=== PATIENT | female | born 1945 | race Native Hawaiian/Other Pacific Islander ===

== ENCOUNTER 2016-09-06 09:41 | Inpatient (IN) | payer OTHER | END 2016-10-07 08:00 | disposition still patient (30) | LOC: PAVB 09:41 | PROVIDERS: ADMIT Internal Medicine | DX: Z51.89 Encounter for other specified aftercare (principal) ==

== ENCOUNTER 2016-10-07 09:00 | Inpatient (IN) | payer OTHER | END 2016-11-07 10:19 | disposition still patient (30) | LOC: PAVB 09:00 | PROVIDERS: ADMIT Internal Medicine | DX: Z51.89 Encounter for other specified aftercare (principal) ==

== ENCOUNTER 2016-10-08 07:47 | Outpatient (CLI) | payer OTHER ==
[2016-10-08 08:26] LABS: PLATELET COUNT 158 K/uL (152-353)
[2016-10-08 08:45] LABS: SODIUM 134 mmol/L (136-145)
== END 2016-10-08 19:20 | disposition home or self-care (01) ==
LOC: LAB 07:47
PROVIDERS: Internal Medicine
DX: E11.9 Type 2 diabetes mellitus without complications (principal); I10 Essential (primary) hypertension
CPT/HCPCS: 36415; 80053; 83036; 85027

== ENCOUNTER 2016-11-07 10:51 | Inpatient (IN) | payer OTHER | END 2016-12-05 09:48 | disposition still patient (30) | LOC: PAVB 10:51 | PROVIDERS: ADMIT Internal Medicine | DX: Z51.89 Encounter for other specified aftercare (principal) ==

== ENCOUNTER 2016-11-19 18:34 | Outpatient (CLI) | payer OTHER | END 2016-11-19 23:07 | disposition home or self-care (01) | LOC: LAB 18:34 | DX: N39.0 Urinary tract infection, site not specified (principal) | CPT/HCPCS: 81000; 87077; 87086; 87088; 87186 ==

== ENCOUNTER 2016-12-05 11:04 | Inpatient (IN) | payer OTHER | END 2017-01-05 08:05 | disposition still patient (30) | LOC: PAVB 11:04 | PROVIDERS: ADMIT Internal Medicine | DX: Z51.89 Encounter for other specified aftercare (principal) ==

== ENCOUNTER 2017-01-05 09:17 | Inpatient (IN) | payer OTHER | END 2017-02-04 09:07 | disposition still patient (30) | LOC: PAVB 09:17 | PROVIDERS: ADMIT Internal Medicine | DX: Z51.89 Encounter for other specified aftercare (principal) ==

== ENCOUNTER 2017-01-07 07:51 | Outpatient (CLI) | payer OTHER | END 2017-01-07 08:51 | disposition home or self-care (01) | LOC: LAB 07:51 | DX: E11.9 Type 2 diabetes mellitus without complications (principal) | CPT/HCPCS: 36415; 83036 ==

== ENCOUNTER 2017-01-22 17:03 | Outpatient (CLI) | payer OTHER | END 2017-01-22 19:18 | disposition home or self-care (01) | LOC: LAB 17:03 | DX: Z16.24 Resistance to multiple antibiotics (principal) | CPT/HCPCS: 87081 ==

== ENCOUNTER 2017-02-04 09:42 | Inpatient (IN) | payer OTHER | END 2017-03-07 09:31 | disposition still patient (30) | LOC: PAVB 09:42 | PROVIDERS: ADMIT Internal Medicine | DX: Z51.89 Encounter for other specified aftercare (principal) ==

== ENCOUNTER 2017-02-11 14:14 | Outpatient (CLI) | payer OTHER | END 2017-02-11 19:23 | disposition home or self-care (01) | LOC: RAD 14:14 | DX: M25.512 Pain in left shoulder (principal) ==

== ENCOUNTER 2017-02-28 08:26 | Outpatient (CLI) | payer OTHER | END 2017-02-28 19:44 | disposition home or self-care (01) | LOC: MRI 08:26 | DX: M54.12 Radiculopathy, cervical region (principal) ==

== ENCOUNTER 2017-03-07 09:44 | Inpatient (IN) | payer OTHER | END 2017-04-06 15:20 | disposition still patient (30) | LOC: PAVB 09:44 | PROVIDERS: ADMIT Internal Medicine | DX: Z51.89 Encounter for other specified aftercare (principal) ==

== ENCOUNTER 2017-04-06 15:31 | Inpatient (IN) | payer OTHER | END 2017-05-07 09:32 | disposition still patient (30) | LOC: PAVB 15:31 | PROVIDERS: ADMIT Internal Medicine | DX: Z51.89 Encounter for other specified aftercare (principal) ==

== ENCOUNTER 2017-04-08 07:30 | Outpatient (CLI) | payer OTHER ==
[2017-04-08 07:56] LABS: PLATELET COUNT 141 K/uL (152-353)
[2017-04-08 08:39] LABS: SODIUM 141 mmol/L (136-145)
== END 2017-04-08 08:30 | disposition home or self-care (01) ==
LOC: LAB 07:30
PROVIDERS: Internal Medicine
DX: E11.9 Type 2 diabetes mellitus without complications (principal); I10 Essential (primary) hypertension
CPT/HCPCS: 80053; 83036; 85027

== ENCOUNTER 2017-05-07 09:55 | Inpatient (IN) | payer OTHER | END 2017-06-07 08:40 | disposition still patient (30) | LOC: PAVB 09:55 | PROVIDERS: ADMIT Internal Medicine | DX: Z51.89 Encounter for other specified aftercare (principal) ==

== ENCOUNTER 2017-06-07 08:59 | Inpatient (IN) | payer OTHER | END 2017-07-07 10:27 | disposition still patient (30) | LOC: PAVB 08:59 | PROVIDERS: ADMIT Internal Medicine | DX: Z51.89 Encounter for other specified aftercare (principal) ==

== ENCOUNTER 2017-07-07 10:30 | Inpatient (IN) | payer OTHER | END 2017-08-07 12:55 | disposition still patient (30) | LOC: PAVB 10:30 | PROVIDERS: ADMIT Internal Medicine ==

== ENCOUNTER 2017-07-09 07:02 | Outpatient (CLI) | payer OTHER | END 2017-07-09 08:05 | disposition home or self-care (01) | LOC: LAB 07:02 | DX: E11.9 Type 2 diabetes mellitus without complications (principal) | CPT/HCPCS: 36415; 83036 ==

== ENCOUNTER 2017-08-07 13:27 | Inpatient (IN) | payer OTHER | END 2017-09-06 09:17 | disposition still patient (30) | LOC: PAVB 13:27 | PROVIDERS: ADMIT Internal Medicine ==

== ENCOUNTER 2017-09-06 09:29 | Inpatient (IN) | payer OTHER | END 2017-10-07 09:28 | disposition still patient (30) | LOC: PAVB 09:29 | PROVIDERS: ADMIT Internal Medicine ==

== ENCOUNTER 2017-10-07 09:51 | Inpatient (IN) | payer OTHER | END 2017-11-07 09:47 | disposition still patient (30) | LOC: PAVB 09:51 | PROVIDERS: ADMIT Internal Medicine ==

== ENCOUNTER 2017-10-09 03:57 | Outpatient (CLI) | payer OTHER ==
[2017-10-09 05:26] LABS: PLATELET COUNT 159 K/uL (152-353)
[2017-10-09 05:50] LABS: POTASSIUM 3.6 mmol/L (3.6-5.2); SODIUM 136 mmol/L (136-145)
== END 2017-10-09 21:33 | disposition home or self-care (01) ==
LOC: LAB 03:57
PROVIDERS: Internal Medicine
DX: I10 Essential (primary) hypertension (principal); E11.9 Type 2 diabetes mellitus without complications
CPT/HCPCS: 36415; 80053; 85027

== ENCOUNTER 2017-10-18 15:30 | Outpatient (CLI) | payer OTHER | END 2017-10-18 23:42 | disposition home or self-care (01) | LOC: LAB 15:30 | DX: R82.99 Other abnormal findings in urine (principal); R30.9 Painful micturition, unspecified | CPT/HCPCS: 81000; 87077; 87086; 87088; 87186 ==

== ENCOUNTER 2017-11-07 10:26 | Inpatient (IN) | payer OTHER | END 2017-12-05 09:17 | disposition still patient (30) | LOC: PAVB 10:26 | PROVIDERS: ADMIT Internal Medicine ==

== ENCOUNTER 2017-12-05 09:40 | Inpatient (IN) | payer OTHER | END 2018-01-05 08:00 | disposition still patient (30) | LOC: PAVB 09:40 | PROVIDERS: ADMIT Internal Medicine ==

== ENCOUNTER 2018-01-05 09:00 | Inpatient (IN) | payer OTHER | END 2018-02-04 09:02 | disposition still patient (30) | LOC: PAVB 09:00 | PROVIDERS: ADMIT Internal Medicine ==

== ENCOUNTER 2018-01-08 06:34 | Outpatient (CLI) | payer OTHER | END 2018-01-08 22:24 | disposition home or self-care (01) | LOC: LAB 06:34 | DX: E11.9 Type 2 diabetes mellitus without complications (principal) | CPT/HCPCS: 83036 ==

== ENCOUNTER 2018-02-04 09:21 | Inpatient (IN) | payer OTHER | END 2018-03-07 08:51 | disposition still patient (30) | LOC: PAVB 09:21 | PROVIDERS: ADMIT Internal Medicine ==

== ENCOUNTER 2018-03-07 09:06 | Inpatient (IN) | payer OTHER | END 2018-04-06 14:18 | disposition still patient (30) | LOC: PAVB 09:06 | PROVIDERS: ADMIT Internal Medicine ==

== ENCOUNTER 2018-04-06 14:42 | Inpatient (IN) | payer OTHER | END 2018-05-07 08:00 | disposition still patient (30) | LOC: PAVB 14:42 | PROVIDERS: ADMIT Internal Medicine ==

== ENCOUNTER 2018-04-10 08:26 | Outpatient (CLI) | payer OTHER ==
[2018-04-10 09:10] LABS: PLATELET COUNT 149 K/uL (152-353)
[2018-04-10 10:17] LABS: POTASSIUM 3.5 mmol/L (3.6-5.2)
== END 2018-04-10 19:31 | disposition home or self-care (01) ==
LOC: LAB 08:26
PROVIDERS: Internal Medicine
DX: E11.9 Type 2 diabetes mellitus without complications (principal); I10 Essential (primary) hypertension
CPT/HCPCS: 80053; 83036; 85027

== ENCOUNTER 2018-05-07 09:00 | Inpatient (IN) | payer OTHER | END 2018-06-07 10:16 | disposition still patient (30) | LOC: PAVB 09:00 | PROVIDERS: ADMIT Internal Medicine ==

== ENCOUNTER 2018-06-07 10:49 | Inpatient (IN) | payer OTHER | END 2018-07-07 09:17 | disposition still patient (30) | LOC: PAVB 10:49 | PROVIDERS: ADMIT Internal Medicine ==

== ENCOUNTER 2018-06-26 08:16 | Outpatient (CLI) | payer OTHER | END 2018-06-26 22:07 | disposition home or self-care (01) | LOC: MRI 08:16 | DX: M54.17 Radiculopathy, lumbosacral region (principal) ==

== ENCOUNTER 2018-07-07 09:44 | Inpatient (IN) | payer OTHER | END 2018-08-07 08:45 | disposition still patient (30) | LOC: PAVB 09:44 | PROVIDERS: ADMIT Internal Medicine ==

== ENCOUNTER 2018-08-07 09:31 | Inpatient (IN) | payer OTHER | END 2018-09-06 08:30 | disposition still patient (30) | LOC: PAVB 09:31 | PROVIDERS: ADMIT Internal Medicine ==

== ENCOUNTER 2018-08-19 09:55 | Outpatient (CLI) | payer OTHER | END 2018-08-19 22:05 | disposition home or self-care (01) | LOC: RAD 09:55 | DX: Z78.0 Asymptomatic menopausal state (principal) ==

== ENCOUNTER 2018-08-22 03:30 | Outpatient (CLI) | payer OTHER | END 2018-08-22 19:11 | disposition home or self-care (01) | LOC: LAB 03:30 | DX: D51.9 Vitamin B12 deficiency anemia, unspecified (principal) | CPT/HCPCS: 82607 ==

== ENCOUNTER 2018-09-06 09:00 | Inpatient (IN) | payer OTHER | END 2018-10-07 11:03 | disposition still patient (30) | LOC: PAVB 09:00 | PROVIDERS: ADMIT Internal Medicine ==

== ENCOUNTER 2018-10-07 11:13 | Inpatient (IN) | payer OTHER | END 2018-11-07 10:47 | disposition still patient (30) | LOC: PAVB 11:13 | PROVIDERS: ADMIT Internal Medicine ==

== ENCOUNTER 2018-10-08 07:34 | Outpatient (CLI) | payer OTHER ==
[2018-10-08 07:59] LABS: PLATELET COUNT 150 K/uL (152-353)
[2018-10-08 08:06] LABS: POTASSIUM 3.9 mmol/L (3.6-5.2)
== END 2018-10-08 21:31 | disposition home or self-care (01) ==
LOC: LAB 07:34
PROVIDERS: Internal Medicine
DX: I10 Essential (primary) hypertension (principal); E11.9 Type 2 diabetes mellitus without complications
CPT/HCPCS: 80053; 83036; 85027

== ENCOUNTER 2018-11-07 11:00 | Inpatient (IN) | payer OTHER | END 2018-12-05 10:15 | disposition still patient (30) | LOC: PAVB 11:00 | PROVIDERS: ADMIT Internal Medicine ==

== ENCOUNTER 2018-12-05 10:25 | Inpatient (IN) | payer OTHER | END 2019-01-05 10:35 | disposition still patient (30) | LOC: PAVB 10:25 | PROVIDERS: ADMIT Internal Medicine ==

== ENCOUNTER 2019-01-05 11:08 | Inpatient (IN) | payer OTHER | END 2019-02-04 11:09 | disposition still patient (30) | LOC: PAVB 11:08 | PROVIDERS: ADMIT Internal Medicine ==

== ENCOUNTER 2019-01-08 04:29 | Outpatient (CLI) | payer OTHER | END 2019-01-08 19:07 | disposition home or self-care (01) | LOC: LAB 04:29 | DX: E11.9 Type 2 diabetes mellitus without complications (principal) | CPT/HCPCS: 83036 ==

== ENCOUNTER 2019-01-27 15:52 | Outpatient (CLI) | payer OTHER | END 2019-01-27 20:32 | disposition home or self-care (01) | LOC: LAB 15:52 | DX: H92.02 Otalgia, left ear (principal) | CPT/HCPCS: 87070; 87077; 87185; 87186; 87205 ==

== ENCOUNTER 2019-02-04 11:28 | Inpatient (IN) | payer OTHER | END 2019-03-07 08:33 | disposition still patient (30) | LOC: PAVB 11:28 | PROVIDERS: ADMIT Internal Medicine | DX: Z51.89 Encounter for other specified aftercare (principal) ==

== ENCOUNTER 2019-02-05 04:41 | Outpatient (CLI) | payer OTHER | END 2019-02-05 19:45 | disposition home or self-care (01) | LOC: LAB 04:41 | DX: D51.8 Other vitamin B12 deficiency anemias (principal) | CPT/HCPCS: 82607 ==

== ENCOUNTER 2019-03-07 09:07 | Inpatient (IN) | payer OTHER | END 2019-04-06 09:35 | disposition still patient (30) | LOC: PAVB 09:07 | PROVIDERS: ADMIT Internal Medicine ==

== ENCOUNTER 2019-03-22 15:31 | Outpatient (CLI) | payer OTHER | END 2019-03-22 18:45 | disposition home or self-care (01) | LOC: LAB 15:31 | DX: R30.9 Painful micturition, unspecified (principal); R82.998 Other abnormal findings in urine | CPT/HCPCS: 81000; 87077; 87086; 87088; 87186 ==

== ENCOUNTER 2019-04-06 10:24 | Inpatient (IN) | payer OTHER | END 2019-05-07 10:33 | disposition still patient (30) | LOC: PAVB 10:24 | PROVIDERS: ADMIT Internal Medicine ==

== ENCOUNTER 2019-04-07 04:28 | Outpatient (CLI) | payer OTHER ==
[2019-04-07 06:27] LABS: POTASSIUM 3.3 mmol/L (3.6-5.2)
[2019-04-07 06:31] LABS: PLATELET COUNT 171 K/uL (152-353)
== END 2019-04-07 19:06 | disposition home or self-care (01) ==
LOC: LAB 04:28
PROVIDERS: Internal Medicine
DX: E11.9 Type 2 diabetes mellitus without complications (principal); I10 Essential (primary) hypertension
CPT/HCPCS: 80053; 83036; 85027

== ENCOUNTER 2019-05-04 15:41 | Outpatient (CLI) | payer OTHER | END 2019-05-05 05:56 | disposition home or self-care (01) | LOC: LAB 15:41 | DX: R35.0 Frequency of micturition (principal) | CPT/HCPCS: 81000; 87077; 87086; 87088; 87186 ==

== ENCOUNTER 2019-05-07 10:55 | Inpatient (IN) | payer OTHER ==
[~2019-05-07] VITALS: Ht 157.5 cm; Wt 68.0 kg
== END 2019-06-07 16:24 | disposition still patient (30) ==
LOC: PAVB 10:55
PROVIDERS: ADMIT Internal Medicine
CPT/HCPCS: J0696

== ENCOUNTER 2019-05-16 04:50 | Outpatient (CLI) | payer OTHER | END 2019-05-16 19:56 | disposition home or self-care (01) | LOC: LAB 04:50 | DX: N39.0 Urinary tract infection, site not specified (principal) | CPT/HCPCS: 81000 ==

== ENCOUNTER 2019-06-07 16:54 | Inpatient (IN) | payer OTHER | END 2019-07-07 09:19 | disposition still patient (30) | LOC: PAVB 16:54 | PROVIDERS: ADMIT Internal Medicine ==

== ENCOUNTER 2019-07-07 09:45 | Inpatient (IN) | payer OTHER | END 2019-08-07 11:07 | disposition still patient (30) | LOC: PAVB 09:45 | PROVIDERS: ADMIT Internal Medicine ==

== ENCOUNTER 2019-07-08 08:36 | Outpatient (CLI) | payer OTHER | END 2019-07-08 23:49 | disposition home or self-care (01) | LOC: LAB 08:36 | DX: E11.21 Type 2 diabetes mellitus with diabetic nephropathy (principal) | CPT/HCPCS: 83036 ==

== ENCOUNTER 2019-08-07 11:21 | Inpatient (IN) | payer OTHER | END 2019-09-06 08:00 | disposition still patient (30) | LOC: PAVB 11:21 | PROVIDERS: ADMIT Internal Medicine ==

== ENCOUNTER 2019-08-10 11:37 | Outpatient (CLI) | payer OTHER | END 2019-08-10 19:17 | disposition home or self-care (01) | LOC: LAB 11:37 | DX: D51.8 Other vitamin B12 deficiency anemias (principal) | CPT/HCPCS: 82607 ==

== ENCOUNTER 2019-09-06 11:11 | Inpatient (IN) | payer OTHER | END 2019-10-07 08:32 | disposition still patient (30) | LOC: PAVB 11:11 | PROVIDERS: ADMIT Internal Medicine ==

== ENCOUNTER 2019-10-07 08:39 | Inpatient (IN) | payer OTHER | END 2019-11-07 09:53 | disposition still patient (30) | LOC: PAVB 08:39 | PROVIDERS: ADMIT Internal Medicine ==

== ENCOUNTER 2019-10-08 05:42 | Outpatient (CLI) | payer OTHER ==
[2019-10-08 06:35] LABS: PLATELET COUNT 157 K/uL (152-353)
== END 2019-10-08 19:29 | disposition home or self-care (01) ==
LOC: LAB 05:42
PROVIDERS: Internal Medicine
DX: E11.9 Type 2 diabetes mellitus without complications (principal)
CPT/HCPCS: 80053; 83036; 85027

== ENCOUNTER 2019-10-29 08:50 | Outpatient (CLI) | payer OTHER | END 2019-10-29 23:04 | disposition home or self-care (01) | LOC: MAMMO 08:50 | DX: N60.12 Diffuse cystic mastopathy of left breast (principal); N60.22 Fibroadenosis of left breast | CPT/HCPCS: G0279 ==

== ENCOUNTER 2019-11-07 10:24 | Inpatient (IN) | payer OTHER | END 2019-12-06 13:12 | disposition still patient (30) | LOC: PAVB 10:24 | PROVIDERS: ADMIT Internal Medicine ==

== ENCOUNTER 2019-11-12 04:18 | Outpatient (CLI) | payer OTHER | END 2019-11-12 19:34 | disposition home or self-care (01) | LOC: LAB 04:18 | DX: N39.0 Urinary tract infection, site not specified (principal); R41.82 Altered mental status, unspecified; R35.8 Other polyuria | CPT/HCPCS: 81000; 87077; 87086; 87088; 87186 ==

== ENCOUNTER 2019-12-06 13:47 | Inpatient (IN) | payer OTHER | END 2020-01-06 09:38 | disposition still patient (30) | LOC: PAVB 13:47 | PROVIDERS: ADMIT Internal Medicine ==

== ENCOUNTER 2020-01-06 10:02 | Inpatient (IN) | payer OTHER | END 2020-02-05 09:00 | disposition still patient (30) | LOC: PAVB 10:02 | PROVIDERS: ADMIT Internal Medicine ==

== ENCOUNTER 2020-02-05 09:39 | Inpatient (IN) | payer OTHER | END 2020-03-07 09:08 | disposition still patient (30) | LOC: PAVB 09:39 | PROVIDERS: ADMIT Internal Medicine | CPT/HCPCS: 87635; U0002 ==

== ENCOUNTER 2020-02-09 07:21 | Outpatient (CLI) | payer OTHER | END 2020-02-09 19:03 | disposition home or self-care (01) | LOC: LAB 07:21 | DX: D51.8 Other vitamin B12 deficiency anemias (principal) | CPT/HCPCS: 82607 ==

== ENCOUNTER 2020-02-16 15:53 | Outpatient (CLI) | payer OTHER | END 2020-02-16 22:31 | disposition home or self-care (01) | LOC: LAB 15:53 | DX: R30.0 Dysuria (principal) | CPT/HCPCS: 81000; 87077; 87086; 87088; 87186 ==

== ENCOUNTER 2020-03-02 06:17 | Outpatient (CLI) | payer OTHER | END 2020-03-02 20:05 | disposition home or self-care (01) | LOC: LAB 06:17 | DX: N39.0 Urinary tract infection, site not specified (principal) | CPT/HCPCS: 81000; 87077; 87086; 87088; 87186 ==

== ENCOUNTER 2020-03-07 09:20 | Inpatient (IN) | payer OTHER | END 2020-04-06 10:18 | disposition still patient (30) | LOC: PAVB 09:20 | PROVIDERS: ADMIT Internal Medicine | CPT/HCPCS: 87635; U0002 ==

== ENCOUNTER 2020-03-14 04:49 | Outpatient (CLI) | payer OTHER | END 2020-03-14 23:07 | disposition home or self-care (01) | LOC: LAB 04:49 | DX: N39.0 Urinary tract infection, site not specified (principal) | CPT/HCPCS: 81000 ==

== ENCOUNTER 2020-04-02 06:19 | Outpatient (CLI) | payer OTHER | END 2020-04-02 23:14 | disposition home or self-care (01) | LOC: LAB 06:19 | DX: N39.0 Urinary tract infection, site not specified (principal) | CPT/HCPCS: 81000; 87077; 87086; 87088; 87186 ==

== ENCOUNTER 2020-04-06 10:51 | Inpatient (IN) | payer OTHER | END 2020-05-07 09:10 | disposition still patient (30) | LOC: PAVB 10:51 | PROVIDERS: ADMIT Internal Medicine | CPT/HCPCS: 87635; U0002 ==

== ENCOUNTER 2020-04-07 07:05 | Outpatient (CLI) | payer OTHER ==
[2020-04-07 09:05] LABS: POTASSIUM 3.6 mmol/L (3.6-5.2)
[2020-04-07 09:54] LABS: PLATELET COUNT 155 K/uL (152-353)
== END 2020-04-07 19:54 | disposition home or self-care (01) ==
LOC: LAB 07:05
PROVIDERS: Internal Medicine
DX: E11.9 Type 2 diabetes mellitus without complications (principal); I10 Essential (primary) hypertension; K21.9 Gastro-esophageal reflux disease without esophagitis; R60.0 Localized edema
CPT/HCPCS: 80053; 83036; 85027

== ENCOUNTER 2020-05-07 09:26 | Inpatient (IN) | payer OTHER | END 2020-06-07 11:59 | disposition still patient (30) | LOC: PAVB 09:26 | PROVIDERS: ADMIT Internal Medicine | CPT/HCPCS: 87635; U0002; U0003 ==

== ENCOUNTER 2020-05-09 06:13 | Outpatient (CLI) | payer OTHER | END 2020-05-09 22:32 | disposition home or self-care (01) | LOC: LAB 06:13 | DX: D51.8 Other vitamin B12 deficiency anemias (principal) | CPT/HCPCS: 85014; 85018 ==

== ENCOUNTER 2020-05-20 14:44 | Outpatient (CLI) | payer OTHER | END 2020-05-20 23:04 | disposition home or self-care (01) | LOC: LAB 14:44 | DX: D64.89 Other specified anemias (principal) | CPT/HCPCS: 85014; 85018 ==

== ENCOUNTER 2020-05-31 10:12 | Outpatient (CLI) | payer OTHER | END 2020-05-31 20:20 | disposition home or self-care (01) | LOC: LAB 10:12 | DX: D64.89 Other specified anemias (principal); D51.8 Other vitamin B12 deficiency anemias | CPT/HCPCS: 85014; 85018 ==

== ENCOUNTER 2020-06-07 12:25 | Inpatient (IN) | payer OTHER | END 2020-07-07 11:03 | disposition still patient (30) | LOC: PAVB 12:25 | PROVIDERS: ADMIT Internal Medicine | CPT/HCPCS: 83036; 85014; 85018 ==

== ENCOUNTER 2020-06-09 10:03 | Outpatient (CLI) | payer OTHER | END 2020-06-09 21:49 | disposition home or self-care (01) | LOC: LAB 10:03 | DX: D64.9 Anemia, unspecified (principal) | CPT/HCPCS: 82272; 82728; 83540; 85014; 85018 ==

== ENCOUNTER 2020-06-15 14:38 | Outpatient (CLI) | payer OTHER | END 2020-06-15 23:39 | disposition home or self-care (01) | LOC: LAB 14:38 | DX: D64.89 Other specified anemias (principal) | CPT/HCPCS: 82272 ==

== ENCOUNTER 2020-06-16 07:14 | Outpatient (CLI) | payer OTHER | END 2020-06-16 22:59 | disposition home or self-care (01) | LOC: LAB 07:14 | DX: D64.89 Other specified anemias (principal) | CPT/HCPCS: 85014; 85018 ==

== ENCOUNTER 2020-06-17 18:03 | Outpatient (CLI) | payer OTHER | END 2020-06-18 00:02 | disposition home or self-care (01) | LOC: LAB 18:03 | DX: D64.89 Other specified anemias (principal) | CPT/HCPCS: 82272 ==

== ENCOUNTER 2020-06-23 20:26 | Outpatient (CLI) | payer OTHER | END 2020-06-23 23:43 | disposition home or self-care (01) | LOC: LAB 20:26 | DX: D64.89 Other specified anemias (principal) | CPT/HCPCS: 85014; 85018 ==

== ENCOUNTER 2020-06-29 14:34 | Outpatient (CLI) | payer OTHER | END 2020-06-29 23:29 | disposition home or self-care (01) | LOC: LAB 14:34 | DX: R30.0 Dysuria (principal); R35.0 Frequency of micturition; R10.9 Unspecified abdominal pain | CPT/HCPCS: 81000; 87077; 87086; 87088; 87186 ==

== ENCOUNTER 2020-07-07 11:08 | Outpatient (CLI) | payer OTHER | END 2020-07-07 20:06 | disposition home or self-care (01) | LOC: LAB 11:08 | DX: E11.9 Type 2 diabetes mellitus without complications (principal); D64.89 Other specified anemias | CPT/HCPCS: 83036; 85014; 85018 ==

== ENCOUNTER 2020-07-07 11:15 | Inpatient (IN) | payer OTHER | END 2020-08-07 08:00 | disposition still patient (30) | LOC: PAVB 11:15 | PROVIDERS: ADMIT Internal Medicine ==

== ENCOUNTER 2020-07-14 05:44 | Outpatient (CLI) | payer OTHER | END 2020-07-14 19:25 | disposition home or self-care (01) | LOC: LAB 05:44 | DX: D64.89 Other specified anemias (principal) | CPT/HCPCS: 85014; 85018 ==

== ENCOUNTER 2020-07-21 07:45 | Outpatient (CLI) | payer OTHER | END 2020-07-21 22:11 | disposition home or self-care (01) | LOC: LAB 07:45 | DX: D51.8 Other vitamin B12 deficiency anemias (principal); D64.89 Other specified anemias | CPT/HCPCS: 85014; 85018 ==

== ENCOUNTER 2020-07-28 07:36 | Outpatient (CLI) | payer OTHER | END 2020-07-28 19:00 | disposition home or self-care (01) | LOC: LAB 07:36 | DX: D64.89 Other specified anemias (principal) | CPT/HCPCS: 85014; 85018 ==

== ENCOUNTER 2020-08-04 07:49 | Outpatient (CLI) | payer OTHER | END 2020-08-04 23:10 | disposition home or self-care (01) | LOC: LAB 07:49 | DX: D64.89 Other specified anemias (principal) | CPT/HCPCS: 85014; 85018 ==

== ENCOUNTER 2020-08-07 09:00 | Inpatient (IN) | payer OTHER | END 2020-09-06 09:55 | disposition still patient (30) | LOC: PAVB 09:00 | PROVIDERS: ADMIT Internal Medicine; ATTEND Internal Medicine ==

== ENCOUNTER 2020-08-11 12:07 | Outpatient (CLI) | payer OTHER | END 2020-08-11 20:23 | disposition home or self-care (01) | LOC: LAB 12:07 | DX: D51.8 Other vitamin B12 deficiency anemias (principal) | CPT/HCPCS: 82607; 85014; 85018 ==

== ENCOUNTER 2020-08-16 08:06 | Outpatient (CLI) | payer OTHER ==
[2020-08-16 08:19] LABS: PLATELET COUNT 227 K/uL (152-353)
== END 2020-08-16 19:02 | disposition home or self-care (01) ==
LOC: LAB 08:06
PROVIDERS: Internal Medicine
DX: D64.89 Other specified anemias (principal)
CPT/HCPCS: 85027

== ENCOUNTER 2020-08-18 08:22 | Outpatient (CLI) | payer OTHER | END 2020-08-18 20:54 | disposition home or self-care (01) | LOC: LAB 08:22 | PROVIDERS: ATTEND Internal Medicine | DX: D64.89 Other specified anemias (principal) | CPT/HCPCS: 85014; 85018 ==

== ENCOUNTER 2020-08-23 13:36 | Outpatient (CLI) | payer OTHER | END 2020-08-23 22:42 | disposition home or self-care (01) | LOC: RAD 13:36 | PROVIDERS: ATTEND Internal Medicine | DX: M19.90 Unspecified osteoarthritis, unspecified site (principal); N95.8 Other specified menopausal and perimenopausal disorders; Z13.820 Encounter for screening for osteoporosis ==

== ENCOUNTER 2020-08-25 07:57 | Outpatient (CLI) | payer OTHER | END 2020-08-25 19:00 | disposition home or self-care (01) | LOC: LAB 07:57 | PROVIDERS: ATTEND Internal Medicine | DX: D64.89 Other specified anemias (principal) | CPT/HCPCS: 85014; 85018 ==

== ENCOUNTER 2020-09-01 06:21 | Outpatient (CLI) | payer OTHER | END 2020-09-01 21:44 | disposition home or self-care (01) | LOC: LAB 06:21 | PROVIDERS: ATTEND Internal Medicine | DX: D64.89 Other specified anemias (principal) | CPT/HCPCS: 85014; 85018 ==

== ENCOUNTER 2020-09-06 10:53 | Inpatient (IN) | payer OTHER | END 2020-10-07 09:02 | disposition still patient (30) | LOC: PAVB 10:53 | PROVIDERS: ADMIT Internal Medicine; ATTEND Internal Medicine ==

== ENCOUNTER 2020-09-08 06:53 | Outpatient (CLI) | payer OTHER | END 2020-09-08 18:57 | disposition home or self-care (01) | LOC: LAB 06:53 | PROVIDERS: ATTEND Internal Medicine | DX: D64.89 Other specified anemias (principal) | CPT/HCPCS: 85014; 85018 ==

== ENCOUNTER 2020-09-15 08:21 | Outpatient (CLI) | payer OTHER | END 2020-09-15 20:05 | disposition home or self-care (01) | LOC: LAB 08:21 | PROVIDERS: ATTEND Internal Medicine | DX: D64.89 Other specified anemias (principal) | CPT/HCPCS: 85014; 85018 ==

== ENCOUNTER 2020-09-22 07:54 | Outpatient (CLI) | payer OTHER | END 2020-09-22 19:18 | disposition home or self-care (01) | LOC: LAB 07:54 | PROVIDERS: ATTEND Internal Medicine | DX: D51.8 Other vitamin B12 deficiency anemias (principal); D64.89 Other specified anemias | CPT/HCPCS: 36415; 85014; 85018 ==

== ENCOUNTER 2020-09-29 07:34 | Outpatient (CLI) | payer OTHER | END 2020-09-29 19:13 | disposition home or self-care (01) | LOC: LAB 07:34 | PROVIDERS: ATTEND Internal Medicine | DX: D51.8 Other vitamin B12 deficiency anemias (principal) | CPT/HCPCS: 85014; 85018 ==

== ENCOUNTER 2020-10-06 08:32 | Outpatient (CLI) | payer OTHER | END 2020-10-06 18:57 | disposition home or self-care (01) | LOC: LAB 08:32 | PROVIDERS: ATTEND Internal Medicine | DX: D64.89 Other specified anemias (principal) | CPT/HCPCS: 85014; 85018 ==

== ENCOUNTER 2020-10-07 09:10 | Inpatient (IN) | payer OTHER | END 2020-11-07 14:55 | disposition still patient (30) | LOC: PAVB 09:10 | PROVIDERS: ADMIT Internal Medicine; ATTEND Internal Medicine ==

== ENCOUNTER 2020-10-10 08:54 | Outpatient (CLI) | payer OTHER ==
[2020-10-10 09:32] LABS: PLATELET COUNT 170 K/uL (152-353)
[2020-10-10 10:03] LABS: POTASSIUM 3.2 mmol/L (3.6-5.2)
== END 2020-10-10 21:06 | disposition home or self-care (01) ==
LOC: LAB 08:54
PROVIDERS: ATTEND Internal Medicine
DX: E11.9 Type 2 diabetes mellitus without complications (principal); I10 Essential (primary) hypertension; K21.9 Gastro-esophageal reflux disease without esophagitis; R60.0 Localized edema
CPT/HCPCS: 80053; 83036; 85027

== ENCOUNTER 2020-10-13 07:09 | Outpatient (CLI) | payer OTHER | END 2020-10-13 21:08 | disposition home or self-care (01) | LOC: LAB 07:09 | PROVIDERS: ATTEND Internal Medicine | DX: D64.89 Other specified anemias (principal) | CPT/HCPCS: 85014; 85018 ==

== ENCOUNTER 2020-10-17 17:25 | Outpatient (CLI) | payer OTHER | END 2020-10-17 20:53 | disposition home or self-care (01) | LOC: LAB 17:25 | PROVIDERS: ATTEND Internal Medicine | DX: R10.84 Generalized abdominal pain (principal); R35.0 Frequency of micturition; R39.15 Urgency of urination | CPT/HCPCS: 81000; 87077; 87086; 87088; 87186 ==

== ENCOUNTER 2020-10-20 07:01 | Outpatient (CLI) | payer OTHER | END 2020-10-20 21:07 | disposition home or self-care (01) | LOC: LAB 07:01 | PROVIDERS: ATTEND Internal Medicine | DX: D64.89 Other specified anemias (principal) | CPT/HCPCS: 85014; 85018 ==

== ENCOUNTER 2020-10-27 08:10 | Outpatient (CLI) | payer OTHER | END 2020-10-27 20:36 | disposition home or self-care (01) | LOC: LAB 08:10 | PROVIDERS: ATTEND Internal Medicine | DX: D64.89 Other specified anemias (principal) | CPT/HCPCS: 85014; 85018 ==

== ENCOUNTER 2020-10-30 13:24 | Outpatient (CLI) | payer OTHER | END 2020-10-30 19:27 | disposition home or self-care (01) | LOC: LAB 13:24 | PROVIDERS: ATTEND Internal Medicine | DX: N39.0 Urinary tract infection, site not specified (principal) | CPT/HCPCS: 81000 ==

== ENCOUNTER 2020-11-02 09:14 | Outpatient (CLI) | payer OTHER | END 2020-11-02 21:49 | disposition home or self-care (01) | LOC: MAMMO 09:14 | PROVIDERS: ATTEND Internal Medicine | DX: N60.29 Fibroadenosis of unspecified breast (principal); Z12.31 Encounter for screening mammogram for malignant neoplasm of breast ==

== ENCOUNTER 2020-11-03 07:51 | Outpatient (CLI) | payer OTHER | END 2020-11-03 23:40 | disposition home or self-care (01) | LOC: LAB 07:51 | PROVIDERS: ATTEND Internal Medicine | DX: D64.89 Other specified anemias (principal) | CPT/HCPCS: 85014; 85018 ==

== ENCOUNTER 2020-11-07 15:02 | Inpatient (IN) | payer OTHER | END 2020-12-05 09:53 | disposition still patient (30) | LOC: PAVB 15:02 | PROVIDERS: ADMIT Internal Medicine; ATTEND Internal Medicine ==

== ENCOUNTER 2020-11-10 10:18 | Outpatient (CLI) | payer OTHER | END 2020-11-10 20:08 | disposition home or self-care (01) | LOC: LAB 10:18 | PROVIDERS: ATTEND Internal Medicine | DX: D51.8 Other vitamin B12 deficiency anemias (principal) | CPT/HCPCS: 85014; 85018 ==

== ENCOUNTER 2020-11-17 10:03 | Outpatient (CLI) | payer OTHER | END 2020-11-17 19:50 | disposition home or self-care (01) | LOC: LAB 10:03 | PROVIDERS: ATTEND Internal Medicine | DX: D64.89 Other specified anemias (principal) | CPT/HCPCS: 85014; 85018 ==

== ENCOUNTER 2020-11-24 06:16 | Outpatient (CLI) | payer OTHER | END 2020-11-24 21:01 | disposition home or self-care (01) | LOC: LABW 06:16 → LAB 06:16 → LABW 21:01 | PROVIDERS: ATTEND Internal Medicine | DX: D64.89 Other specified anemias (principal) | CPT/HCPCS: 85014; 85018 ==

== ENCOUNTER 2020-12-01 07:02 | Outpatient (CLI) | payer OTHER | END 2020-12-01 20:01 | disposition home or self-care (01) | LOC: LAB 07:02 | PROVIDERS: ATTEND Internal Medicine | DX: D64.89 Other specified anemias (principal) | CPT/HCPCS: 85014; 85018 ==

== ENCOUNTER 2020-12-05 10:05 | Inpatient (IN) | payer OTHER | END 2021-01-05 09:59 | disposition still patient (30) | LOC: PAVB 10:05 | PROVIDERS: ADMIT Internal Medicine; ATTEND Internal Medicine ==

== ENCOUNTER 2020-12-30 14:10 | Outpatient (CLI) | payer OTHER | END 2020-12-30 21:49 | disposition home or self-care (01) | LOC: US 14:10 | PROVIDERS: ATTEND Internal Medicine | DX: Z86.73 Personal history of transient ischemic attack (TIA), and cerebral infarction without residual deficits (principal) ==

== ENCOUNTER 2021-01-03 08:04 | Outpatient (CLI) | payer OTHER ==
[2021-01-03 08:10] LABS: PLATELET COUNT 194 K/uL (152-353)
[2021-01-03 08:21] LABS: POTASSIUM 4.8 mmol/L (3.6-5.2)
== END 2021-01-03 19:49 | disposition home or self-care (01) ==
LOC: LAB 08:04
PROVIDERS: ATTEND Internal Medicine
DX: E11.9 Type 2 diabetes mellitus without complications (principal)
CPT/HCPCS: 80053; 83036; 85027

== ENCOUNTER 2021-01-05 10:26 | Inpatient (IN) | payer OTHER | END 2021-02-04 10:50 | disposition still patient (30) | LOC: PAVB 10:26 | PROVIDERS: ADMIT Internal Medicine; ATTEND Internal Medicine ==

== ENCOUNTER 2021-01-06 10:43 | Outpatient (CLI) | payer OTHER | END 2021-01-06 19:28 | disposition home or self-care (01) | LOC: LAB 10:43 | PROVIDERS: ATTEND Internal Medicine | DX: D64.89 Other specified anemias (principal); E11.9 Type 2 diabetes mellitus without complications | CPT/HCPCS: 85014; 85018 ==

== ENCOUNTER 2021-02-04 11:01 | Inpatient (IN) | payer OTHER | END 2021-03-07 14:38 | disposition still patient (30) | LOC: PAVB 11:01 | PROVIDERS: ADMIT Internal Medicine; ATTEND Internal Medicine ==

== ENCOUNTER 2021-02-07 09:37 | Outpatient (CLI) | payer OTHER | END 2021-02-07 19:46 | disposition home or self-care (01) | LOC: LAB 09:37 | PROVIDERS: ATTEND Internal Medicine | DX: D51.8 Other vitamin B12 deficiency anemias (principal) | CPT/HCPCS: 82607; 85014; 85018 ==

== ENCOUNTER 2021-03-07 14:46 | Inpatient (IN) | payer OTHER | END 2021-04-06 08:00 | disposition still patient (30) | LOC: PAVB 14:46 | PROVIDERS: ADMIT Internal Medicine; ATTEND Internal Medicine ==

== ENCOUNTER 2021-03-09 07:25 | Outpatient (CLI) | payer OTHER | END 2021-03-09 22:42 | disposition home or self-care (01) | LOC: LAB 07:25 | PROVIDERS: ATTEND Internal Medicine | DX: D64.89 Other specified anemias (principal) | CPT/HCPCS: 85014; 85018 ==

== ENCOUNTER 2021-03-17 04:20 | Outpatient (CLI) | payer OTHER | END 2021-03-17 18:54 | disposition home or self-care (01) | LOC: CT 04:20 | PROVIDERS: ATTEND Internal Medicine | DX: M54.2 Cervicalgia (principal); Z79.899 Other long term (current) drug therapy | CPT/HCPCS: Q9963 ==

== ENCOUNTER 2021-03-17 05:08 | Outpatient (CLI) | payer OTHER | END 2021-03-17 18:55 | disposition home or self-care (01) | LOC: LAB 05:08 | PROVIDERS: ATTEND Internal Medicine | DX: Z79.899 Other long term (current) drug therapy (principal); M54.2 Cervicalgia | CPT/HCPCS: 82565; 84520 ==

== ENCOUNTER 2021-04-06 09:00 | Inpatient (IN) | payer OTHER | END 2021-05-07 08:00 | disposition still patient (30) | LOC: PAVB 09:00 | PROVIDERS: ADMIT Internal Medicine; ATTEND Internal Medicine ==

== ENCOUNTER 2021-04-11 10:17 | Outpatient (CLI) | payer OTHER ==
[2021-04-11 12:06] LABS: POTASSIUM 4.6 mmol/L (3.6-5.2)
[2021-04-11 12:08] LABS: PLATELET COUNT 200 K/uL (152-353)
== END 2021-04-11 19:14 | disposition home or self-care (01) ==
LOC: LAB 10:17
PROVIDERS: ATTEND Internal Medicine
DX: I10 Essential (primary) hypertension (principal); K21.9 Gastro-esophageal reflux disease without esophagitis; R60.0 Localized edema; E11.9 Type 2 diabetes mellitus without complications; D64.89 Other specified anemias
CPT/HCPCS: 80053; 83036; 85027

== ENCOUNTER 2021-05-07 09:00 | Inpatient (IN) | payer OTHER | END 2021-06-07 10:17 | disposition still patient (30) | LOC: PAVB 09:00 | PROVIDERS: ADMIT Internal Medicine; ATTEND Internal Medicine ==

== ENCOUNTER 2021-05-08 07:13 | Outpatient (CLI) | payer OTHER | END 2021-05-08 22:33 | disposition home or self-care (01) | LOC: LAB 07:13 | PROVIDERS: ATTEND Internal Medicine | DX: D64.89 Other specified anemias (principal) | CPT/HCPCS: 85014; 85018 ==

== ENCOUNTER 2021-06-07 08:23 | Outpatient (CLI) | payer OTHER | END 2021-06-07 23:00 | disposition home or self-care (01) | LOC: LAB 08:23 | PROVIDERS: ATTEND Internal Medicine | DX: D64.89 Other specified anemias (principal) | CPT/HCPCS: 85014; 85018 ==

== ENCOUNTER 2021-06-07 12:57 | Inpatient (IN) | payer OTHER | END 2021-07-07 08:41 | disposition still patient (30) | LOC: PAVB 12:57 | PROVIDERS: ADMIT Internal Medicine; ATTEND Internal Medicine ==

== ENCOUNTER 2021-07-07 09:35 | Outpatient (CLI) | payer OTHER | END 2021-07-07 19:04 | disposition home or self-care (01) | LOC: LAB 09:35 | PROVIDERS: ATTEND Internal Medicine | DX: D64.9 Anemia, unspecified (principal); E11.9 Type 2 diabetes mellitus without complications | CPT/HCPCS: 83036; 85014; 85018 ==

== ENCOUNTER 2021-08-08 07:22 | Outpatient (CLI) | payer OTHER | END 2021-08-08 21:16 | disposition home or self-care (01) | LOC: LAB 07:22 | PROVIDERS: ATTEND Internal Medicine | DX: D64.89 Other specified anemias (principal) | CPT/HCPCS: 36415; 82607; 85014; 85018 ==

== ENCOUNTER 2021-09-06 07:06 | Outpatient (CLI) | payer OTHER | END 2021-09-06 20:09 | disposition home or self-care (01) | LOC: LAB 07:06 | PROVIDERS: ATTEND Internal Medicine | DX: D51.8 Other vitamin B12 deficiency anemias (principal) | CPT/HCPCS: 36415; 85014; 85018 ==

== ENCOUNTER 2021-09-06 10:17 | Inpatient (IN) | payer OTHER | END 2021-10-07 08:21 | disposition still patient (30) | LOC: PAVB 10:17 | PROVIDERS: ADMIT Internal Medicine; ATTEND Internal Medicine ==

== ENCOUNTER 2021-10-07 08:42 | Inpatient (IN) | payer OTHER | END 2021-11-07 09:29 | disposition still patient (30) | LOC: PAVB 08:42 | PROVIDERS: ADMIT Internal Medicine; ATTEND Internal Medicine ==

== ENCOUNTER 2021-10-10 06:34 | Outpatient (CLI) | payer OTHER ==
[2021-10-10 07:22] LABS: PLATELET COUNT 188 K/uL (152-353)
[2021-10-10 08:32] LABS: POTASSIUM 4.4 mmol/L (3.6-5.2)
== END 2021-10-10 18:49 | disposition home or self-care (01) ==
LOC: LAB 06:34
PROVIDERS: ATTEND Internal Medicine
DX: E11.9 Type 2 diabetes mellitus without complications (principal)
CPT/HCPCS: 80053; 83036; 85027

== ENCOUNTER 2021-11-07 07:13 | Outpatient (CLI) | payer OTHER | END 2021-11-07 19:21 | disposition home or self-care (01) | LOC: LAB 07:13 | PROVIDERS: ATTEND Internal Medicine | DX: D64.89 Other specified anemias (principal) | CPT/HCPCS: 85014; 85018 ==

== ENCOUNTER 2021-11-07 13:34 | Inpatient (IN) | payer OTHER | END 2021-12-05 08:57 | disposition still patient (30) | LOC: PAVB 13:34 | PROVIDERS: ADMIT Internal Medicine; ATTEND Internal Medicine ==

== ENCOUNTER 2021-12-05 12:14 | Inpatient (IN) | payer OTHER | END 2022-01-05 08:41 | disposition still patient (30) | LOC: PAVB 12:14 | PROVIDERS: ADMIT Internal Medicine; ATTEND Internal Medicine ==

== ENCOUNTER 2021-12-06 07:53 | Outpatient (CLI) | payer OTHER | END 2021-12-06 19:22 | disposition home or self-care (01) | LOC: LAB 07:53 | PROVIDERS: ATTEND Internal Medicine | DX: D64.89 Other specified anemias (principal); Z86.718 Personal history of other venous thrombosis and embolism; Z09 Encounter for follow-up examination after completed treatment for conditions other than malignant neoplasm | CPT/HCPCS: 85014; 85018 ==

== ENCOUNTER 2022-01-05 08:52 | Inpatient (IN) | payer OTHER | END 2022-02-04 09:53 | disposition still patient (30) | LOC: PAVB 08:52 | PROVIDERS: ADMIT Internal Medicine; ATTEND Internal Medicine ==

== ENCOUNTER 2022-01-05 10:00 | Outpatient (CLI) | payer OTHER | END 2022-01-05 20:53 | disposition home or self-care (01) | LOC: LAB 10:00 | PROVIDERS: ATTEND Internal Medicine | DX: D64.89 Other specified anemias (principal); E11.9 Type 2 diabetes mellitus without complications | CPT/HCPCS: 83036; 85014; 85018 ==

== ENCOUNTER 2022-02-04 12:25 | Inpatient (IN) | payer OTHER | END 2022-03-07 09:34 | disposition still patient (30) | LOC: PAVB 12:25 | PROVIDERS: ADMIT Internal Medicine; ATTEND Internal Medicine ==

== ENCOUNTER 2022-02-05 11:26 | Outpatient (CLI) | payer OTHER | END 2022-02-05 19:00 | disposition home or self-care (01) | LOC: LAB 11:26 | PROVIDERS: ATTEND Internal Medicine | DX: D51.8 Other vitamin B12 deficiency anemias (principal); D64.89 Other specified anemias | CPT/HCPCS: 82607; 85014; 85018 ==

== ENCOUNTER 2022-03-07 09:41 | Outpatient (CLI) | payer OTHER | END 2022-03-07 19:11 | disposition home or self-care (01) | LOC: LAB 09:41 | PROVIDERS: ATTEND Internal Medicine | DX: D51.8 Other vitamin B12 deficiency anemias (principal); D64.89 Other specified anemias | CPT/HCPCS: 85014; 85018 ==

== ENCOUNTER 2022-03-07 13:07 | Inpatient (IN) | payer OTHER | END 2022-04-06 09:03 | disposition still patient (30) | LOC: PAVB 13:07 | PROVIDERS: ADMIT Internal Medicine; ATTEND Internal Medicine ==

== ENCOUNTER 2022-04-06 10:49 | Inpatient (IN) | payer OTHER | END 2022-05-07 09:14 | disposition still patient (30) | LOC: PAVB 10:49 | PROVIDERS: ADMIT Internal Medicine; ATTEND Internal Medicine ==

== ENCOUNTER 2022-04-09 07:27 | Outpatient (CLI) | payer OTHER ==
[2022-04-09 08:29] LABS: POTASSIUM 4.3 mmol/L (3.6-5.2)
[2022-04-09 08:31] LABS: PLATELET COUNT 184 K/uL (152-353)
== END 2022-04-09 18:51 | disposition home or self-care (01) ==
LOC: LAB 07:27
PROVIDERS: ATTEND Internal Medicine
DX: D64.89 Other specified anemias (principal); E11.9 Type 2 diabetes mellitus without complications; I10 Essential (primary) hypertension; K21.9 Gastro-esophageal reflux disease without esophagitis; R60.0 Localized edema
CPT/HCPCS: 80053; 83036; 85027

== ENCOUNTER 2022-04-20 01:04 | Outpatient (CLI) | payer OTHER | END 2022-04-20 20:49 | disposition home or self-care (01) | LOC: LAB 01:04 | PROVIDERS: ATTEND Internal Medicine | DX: N39.0 Urinary tract infection, site not specified (principal) | CPT/HCPCS: 81000; 87077; 87086; 87088; 87186 ==

== ENCOUNTER 2022-05-02 13:11 | Outpatient (CLI) | payer OTHER | END 2022-05-02 19:23 | disposition home or self-care (01) | LOC: RESP 13:11 | PROVIDERS: ATTEND Internal Medicine | DX: I10 Essential (primary) hypertension (principal) | CPT/HCPCS: 93005 ==

== ENCOUNTER 2022-05-07 11:21 | Inpatient (IN) | payer OTHER | END 2022-06-07 09:00 | disposition still patient (30) | LOC: PAVB 11:21 | PROVIDERS: ADMIT Internal Medicine; ATTEND Internal Medicine ==

== ENCOUNTER 2022-05-08 11:35 | Outpatient (CLI) | payer OTHER | END 2022-05-08 19:05 | disposition home or self-care (01) | LOC: LAB 11:35 | PROVIDERS: ATTEND Internal Medicine | DX: I73.9 Peripheral vascular disease, unspecified (principal); D64.89 Other specified anemias | CPT/HCPCS: 85014; 85018 ==

== ENCOUNTER 2022-06-07 09:28 | Outpatient (CLI) | payer OTHER | END 2022-06-07 19:31 | disposition home or self-care (01) | LOC: LAB 09:28 | PROVIDERS: ATTEND Internal Medicine | DX: D51.8 Other vitamin B12 deficiency anemias (principal); D64.89 Other specified anemias | CPT/HCPCS: 85014; 85018 ==

== ENCOUNTER 2022-06-07 10:44 | Inpatient (IN) | payer OTHER | END 2022-07-07 10:23 | disposition still patient (30) | LOC: PAVB 10:44 | PROVIDERS: ADMIT Internal Medicine; ATTEND Internal Medicine ==

== ENCOUNTER 2022-06-18 12:50 | Outpatient (CLI) | payer OTHER | END 2022-06-18 19:22 | disposition home or self-care (01) | LOC: US 12:50 | PROVIDERS: ATTEND Internal Medicine | DX: I73.9 Peripheral vascular disease, unspecified (principal) ==

== ENCOUNTER 2022-06-19 09:50 | Outpatient (CLI) | payer OTHER | END 2022-06-19 19:29 | disposition home or self-care (01) | LOC: US 09:50 | PROVIDERS: ATTEND Internal Medicine | DX: I73.9 Peripheral vascular disease, unspecified (principal) ==

== ENCOUNTER 2022-06-20 15:02 | Outpatient (CLI) | payer OTHER | END 2022-06-20 18:54 | disposition home or self-care (01) | LOC: CT 15:02 | PROVIDERS: ATTEND Internal Medicine | DX: R41.0 Disorientation, unspecified (principal) ==

== ENCOUNTER 2022-07-07 12:17 | Inpatient (IN) | payer OTHER | END 2022-08-07 14:33 | disposition still patient (30) | LOC: PAVB 12:17 | PROVIDERS: ADMIT Internal Medicine; ATTEND Internal Medicine ==

== ENCOUNTER 2022-07-09 10:31 | Outpatient (CLI) | payer OTHER | END 2022-07-09 20:43 | disposition home or self-care (01) | LOC: LAB 10:31 | PROVIDERS: ATTEND Internal Medicine | DX: D64.89 Other specified anemias (principal); E11.9 Type 2 diabetes mellitus without complications | CPT/HCPCS: 83036; 85014; 85018 ==

== ENCOUNTER 2022-08-07 15:13 | Inpatient (IN) | payer OTHER | END 2022-09-06 14:58 | disposition still patient (30) | LOC: PAVB 15:13 | PROVIDERS: ADMIT Internal Medicine; ATTEND Internal Medicine ==

== ENCOUNTER 2022-08-08 05:13 | Outpatient (CLI) | payer OTHER | END 2022-08-08 20:38 | disposition home or self-care (01) | LOC: LAB 05:13 | PROVIDERS: ATTEND Internal Medicine | DX: D51.8 Other vitamin B12 deficiency anemias (principal) | CPT/HCPCS: 82607; 85014; 85018 ==

== ENCOUNTER 2022-08-24 14:44 | Outpatient (CLI) | payer OTHER | END 2022-08-24 19:00 | disposition home or self-care (01) | LOC: LAB 14:44 | PROVIDERS: ATTEND Internal Medicine | DX: R41.82 Altered mental status, unspecified (principal) | CPT/HCPCS: 81000 ==

== ENCOUNTER 2022-08-27 11:34 | Outpatient (CLI) | payer OTHER | END 2022-08-27 20:28 | disposition home or self-care (01) | LOC: RAD 11:34 | PROVIDERS: ATTEND Internal Medicine | DX: N95.8 Other specified menopausal and perimenopausal disorders (principal); Z13.820 Encounter for screening for osteoporosis ==

== ENCOUNTER 2022-09-06 16:37 | Inpatient (IN) | payer OTHER | END 2022-10-07 10:33 | disposition still patient (30) | LOC: PAVB 16:37 | PROVIDERS: ADMIT Internal Medicine; ATTEND Internal Medicine ==

== ENCOUNTER 2022-09-11 08:13 | Outpatient (CLI) | payer OTHER | END 2022-09-11 19:35 | disposition home or self-care (01) | LOC: LAB 08:13 | PROVIDERS: ATTEND Internal Medicine | DX: I73.9 Peripheral vascular disease, unspecified (principal); D51.8 Other vitamin B12 deficiency anemias | CPT/HCPCS: 85014; 85018 ==

== ENCOUNTER 2022-10-07 11:56 | Inpatient (IN) | payer OTHER | END 2022-11-07 08:42 | disposition still patient (30) | LOC: PAVB 11:56 | PROVIDERS: ADMIT Internal Medicine; ATTEND Internal Medicine ==

== ENCOUNTER 2022-10-08 09:08 | Outpatient (CLI) | payer OTHER ==
[2022-10-08 09:39] LABS: PLATELET COUNT 165 K/uL (152-353)
[2022-10-08 09:43] LABS: POTASSIUM 4.6 mmol/L (3.6-5.2)
== END 2022-10-08 19:05 | disposition home or self-care (01) ==
LOC: LAB 09:08
PROVIDERS: ATTEND Internal Medicine
DX: E11.9 Type 2 diabetes mellitus without complications (principal); I10 Essential (primary) hypertension; K21.9 Gastro-esophageal reflux disease without esophagitis; R60.0 Localized edema; D64.89 Other specified anemias
CPT/HCPCS: 80053; 83036; 85027

== ENCOUNTER 2022-10-22 06:29 | Outpatient (CLI) | payer OTHER ==
[2022-10-22 07:33] LABS: PLATELET COUNT 192 K/uL (152-353)
== END 2022-10-22 19:01 | disposition home or self-care (01) ==
LOC: LAB 06:29
PROVIDERS: ATTEND Internal Medicine
DX: D64.89 Other specified anemias (principal); D51.8 Other vitamin B12 deficiency anemias
CPT/HCPCS: 85027

== ENCOUNTER 2022-11-07 10:26 | Inpatient (IN) | payer OTHER | END 2022-12-05 11:52 | disposition still patient (30) | LOC: PAVB 10:26 | PROVIDERS: ADMIT Internal Medicine; ATTEND Internal Medicine ==

== ENCOUNTER 2022-11-12 05:22 | Outpatient (CLI) | payer OTHER | END 2022-11-12 19:24 | disposition home or self-care (01) | LOC: LAB 05:22 | PROVIDERS: ATTEND Internal Medicine | DX: E11.9 Type 2 diabetes mellitus without complications (principal) | CPT/HCPCS: 36415; 85014; 85018 ==

== ENCOUNTER 2022-12-05 09:55 | Outpatient (CLI) | payer OTHER | END 2022-12-05 19:14 | disposition home or self-care (01) | LOC: LAB 09:55 | PROVIDERS: ATTEND Internal Medicine | DX: D51.8 Other vitamin B12 deficiency anemias (principal) | CPT/HCPCS: 85014; 85018 ==

== ENCOUNTER 2022-12-05 12:16 | Inpatient (IN) | payer OTHER | END 2023-01-05 11:23 | disposition still patient (30) | LOC: PAVB 12:16 | PROVIDERS: ADMIT Internal Medicine; ATTEND Internal Medicine ==

== ENCOUNTER 2022-12-14 13:41 | Outpatient (CLI) | payer OTHER | END 2022-12-14 19:34 | disposition home or self-care (01) | LOC: LAB 13:41 | PROVIDERS: ATTEND Internal Medicine | DX: J02.9 Acute pharyngitis, unspecified (principal) | CPT/HCPCS: 87651 ==

== ENCOUNTER 2023-01-05 11:36 | Inpatient (IN) | payer OTHER | END 2023-02-04 10:38 | disposition still patient (30) | LOC: PAVB 11:36 | PROVIDERS: ADMIT Internal Medicine; ATTEND Internal Medicine ==

== ENCOUNTER 2023-01-07 11:47 | Outpatient (CLI) | payer OTHER | END 2023-01-07 20:32 | disposition home or self-care (01) | LOC: LAB 11:47 | PROVIDERS: ATTEND Internal Medicine | DX: E11.9 Type 2 diabetes mellitus without complications (principal); I73.9 Peripheral vascular disease, unspecified; D64.89 Other specified anemias | CPT/HCPCS: 83036; 85014; 85018 ==

== ENCOUNTER 2023-01-17 13:28 | Outpatient (CLI) | payer OTHER | END 2023-01-17 20:50 | disposition home or self-care (01) | LOC: US 13:28 | PROVIDERS: ATTEND Internal Medicine | DX: L03.115 Cellulitis of right lower limb (principal) ==

== ENCOUNTER 2023-02-04 10:17 | Outpatient (CLI) | payer OTHER | END 2023-02-04 19:47 | disposition home or self-care (01) | LOC: LAB 10:17 | PROVIDERS: ATTEND Internal Medicine | DX: D51.8 Other vitamin B12 deficiency anemias (principal); D64.89 Other specified anemias | CPT/HCPCS: 82607; 85014; 85018 ==

== ENCOUNTER 2023-02-04 11:13 | Inpatient (IN) | payer OTHER | END 2023-03-07 10:34 | disposition still patient (30) | LOC: PAVB 11:13 | PROVIDERS: ADMIT Internal Medicine; ATTEND Internal Medicine ==

== ENCOUNTER 2023-03-07 10:50 | Inpatient (IN) | payer OTHER | END 2023-04-06 17:32 | disposition still patient (30) | LOC: PAVB 10:50 | PROVIDERS: ADMIT Internal Medicine; ATTEND Internal Medicine ==

== ENCOUNTER 2023-03-11 12:00 | Outpatient (CLI) | payer OTHER | END 2023-03-11 19:25 | disposition home or self-care (01) | LOC: LAB 12:00 | PROVIDERS: ATTEND Internal Medicine | DX: D64.89 Other specified anemias (principal) | CPT/HCPCS: 36415; 85014; 85018 ==

== ENCOUNTER 2023-03-27 15:15 | Outpatient (CLI) | payer OTHER | END 2023-03-27 18:55 | disposition home or self-care (01) | LOC: LAB 15:15 | PROVIDERS: ATTEND Internal Medicine | DX: L03.115 Cellulitis of right lower limb (principal) | CPT/HCPCS: 87070; 87205 ==

== ENCOUNTER 2023-04-08 07:36 | Outpatient (CLI) | payer OTHER ==
[2023-04-08 09:05] LABS: PLATELET COUNT 189 K/uL (152-353)
[2023-04-08 09:31] LABS: POTASSIUM 4.5 mmol/L (3.6-5.2)
== END 2023-04-08 19:23 | disposition home or self-care (01) ==
LOC: LAB 07:36
PROVIDERS: ATTEND Internal Medicine
DX: E11.9 Type 2 diabetes mellitus without complications (principal); I10 Essential (primary) hypertension
CPT/HCPCS: 36415; 80053; 82607; 83036; 85027

== ENCOUNTER 2023-05-07 11:25 | Outpatient (CLI) | payer OTHER | END 2023-05-07 20:23 | disposition home or self-care (01) | LOC: LAB 11:25 | PROVIDERS: ATTEND Internal Medicine | DX: D51.8 Other vitamin B12 deficiency anemias (principal); D64.89 Other specified anemias | CPT/HCPCS: 36415; 85014; 85018 ==

== ENCOUNTER 2023-05-14 10:50 | Outpatient (CLI) | payer OTHER | END 2023-05-14 20:24 | disposition home or self-care (01) | LOC: LAB 10:50 | PROVIDERS: ATTEND Internal Medicine | DX: D64.89 Other specified anemias (principal) | CPT/HCPCS: 36415; 85014; 85018 ==

== ENCOUNTER 2023-06-11 10:09 | Outpatient (CLI) | payer OTHER | END 2023-06-11 22:03 | disposition home or self-care (01) | LOC: LAB 10:09 | PROVIDERS: ATTEND Internal Medicine | DX: D64.89 Other specified anemias (principal); D51.8 Other vitamin B12 deficiency anemias | CPT/HCPCS: 85014; 85018 ==

== ENCOUNTER 2023-06-25 05:10 | Outpatient (CLI) | payer OTHER | END 2023-06-25 20:40 | disposition home or self-care (01) | LOC: LAB 05:10 | PROVIDERS: ATTEND Internal Medicine | DX: D64.89 Other specified anemias (principal) | CPT/HCPCS: 85014; 85018 ==

== ENCOUNTER 2023-11-26 06:17 | Outpatient (CLI) | payer OTHER | END 2023-11-26 19:18 | disposition home or self-care (01) | LOC: LAB 06:17 | PROVIDERS: ATTEND Internal Medicine | DX: D64.89 Other specified anemias (principal) | CPT/HCPCS: 85014; 85018 ==